=== PATIENT | female | born 1960 | race Caucasian/White ===

== ENCOUNTER 2024-11-25 13:40 | Outpatient (RCR) | payer MEDICARE, OTHER, SELFPAY ==
[2024-11-25] MEDS: RECLAST 100 IV (14:13)
[2024-11-25 14:17] VITALS: BP 120/65
== END 2024-11-26 08:52 | disposition home or self-care (01) ==
LOC: OID 13:40
PROVIDERS: ATTENDING PHYSICIAN Internal Medicine
DX: M81.0 Age-related osteoporosis without current pathological fracture (principal)
CPT/HCPCS: 96365; J3489